=== PATIENT | female | born 1960 | race Caucasian/White ===

== ENCOUNTER → 2016-07-10 | Outpatient (CLI) | payer OTHER ==
--- NOTE | 2016-07-10 16:24 | XR ---
Right shoulder HISTORY: Right shoulder pain, injury 3 views of the right shoulder, no comparisons Distal clavicle shows some slight superior displacement in relation to the acromion. Right lung apex as visualized is normal. No evident fracture. Bone mineralization is maintained. IMPRESSION: Findings suggest acromioclavicular separation.
--- NOTE | 2016-07-10 16:26 | XR ---
Limited cervical spine HISTORY: Neck pain 3 views of the cervical spine on 4 images No comparisons There is anterolisthesis grade 1 C2-3, C3-4, C4-5, C7-T1 retrolisthesis grade 1 C5-6, C6-7. Multileve l facet arthropathy. Loss of disc height present at C5-6 and C6-7. 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 Prevertebral soft tissues are normal. Cervical vertebral bodies show preserved height and b one mineralization. There is reversal of the normal cervical lordosis. IMPRESSION: Degenerative disc disease and facet arthropathy. Consider cervical MRI or CT.
== END | disposition home or self-care (01) ==
LOC: RADXRMAIN 14:35
PROVIDERS: ATTEND Physician Assistant
DX: M46.92 Unspecified inflammatory spondylopathy, cervical region (principal); M50.30 Other cervical disc degeneration, unspecified cervical region; M25.511 Pain in right shoulder
CPT/HCPCS: 72040